=== PATIENT | male | born 1950 | race Caucasian/White ===

== ENCOUNTER → 2016-11-19 | Outpatient (CLI) | payer BC ==
[~2016-11-19] MED LIST: IOHEXOL 240 MG/ML 50ML VIAL. PO ONE; IOHEXOL 300 MG/ML 100ML VIAL. IV ONE; IOHEXOL 300 MG/ML 50 ML VIAL. IV ONE; LOSA25TA4 PO; METF500T4 PO; PRAV10TA2 PO; TAMS0.4C2 PO
--- NOTE | 2016-11-19 10:55 | KCIC ---
Indication: Left inguinal hernia. Technique: Axial images and coronal and sagittal reformatted images are provided. Oral contrast and 100 mL of intravenous Omnipaque 300 was administered without complication. No comparison is available. One or more of the following individualized dose reduction techniques were utilized for this examination: 1. Automated exposure control 2. Adjustment of the mA and/or kV according to patient size 3. Use of iterative reconstruction technique Findings: The included small bowel and colon are grossly unremarkable. Bladder is unremarkable. Prostate is enlarged. Calcified phleboliths are noted. There is no free pelvic fluid or pelvic hematoma. There is no adenopathy. There is prominent fat within the inguinal canals, greater on the left. No herniated bowel loop is identified. There is no evidence of incarceration. Delayed imaging was performed through the bladder. There is a right lateral wall bladder diverticulum measuring 10 mm. Enlarged prostate indents on the floor the bladder. No filling defect within the bladder lumen is identified. IMPRESSION: Mildly prominent fat within the inguinal canals, greater on the left. There is no herniated bowel loop. Electronically signed by: Emir Clinton MD (11/19/2016 10:52 AM)
== END | disposition home or self-care (01) ==
LOC: KCIC CT 08:55
PROVIDERS: ATTEND Family Medicine
DX: K40.90 Unilateral inguinal hernia, without obstruction or gangrene, not specified as recurrent (principal)
CPT/HCPCS: 72193; Q9966; Q9967; 82565